=== PATIENT | male | born 1970 | race Hispanic/Latino ===

== ENCOUNTER 2019-10-15 13:08 | Emergency (ER) | payer SELFPAY ==
[2019-10-15] MEDS ORDERED: TETANUS,DIPH,PERTUSS(ACELL) VACCINE 0.5 ML SYRINGE IM ONE (13:19)
[2019-10-15] MEDS ORDERED: MORPHINE 4 MG/1 ML INJ ONE (13:43)
[2019-10-15] MEDS ORDERED: ONDANSETRON 4 MG/2 ML INJ ONE (13:43)
[2019-10-15] MEDS ORDERED: MORPHINE 4 MG/1 ML INJ IV ONE (13:48)
[2019-10-15] MEDS ORDERED: ONDANSETRON 4 MG/2 ML INJ IV ONE (13:51)
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
[2019-10-15] MEDS ORDERED: ceFAZolin/NS 1 GM/50 ML 1 GM/50 ML BAG IV ONE (14:19)
[2019-10-15 14:33] LABS: Hemoglobin 15.6 gm/dl (11.8-15.2); Red Blood Count 5.04 M/mm3 (3.65-5.03)
[2019-10-15 14:34] LABS: Basophils % (Auto) 0.4 % (0.0-1.8); Eosinophils # (Auto) 0.1 K/mm3 (0.0-0.4); Eosinophils % (Auto) 1.3 % (0.0-4.3); Hematocrit 46.3 % (35.5-45.6); Lymphocytes # (Auto) 1.8 K/mm3 (1.2-5.4); Lymphocytes % (Auto) 25.2 % (13.4-35.0); Mean Corpuscular HGB Conc 34 % (32-34); Mean Corpuscular Volume 92 fl (84-94); Monocytes # (Auto) 0.7 K/mm3 (0.0-0.8); Monocytes % (Auto) 9.3 % (0.0-7.3); Platelet Count 253 K/mm3 (140-440); Red Cell Distribution Width 13.9 % (13.2-15.2)
[2019-10-15 14:45] LABS: BUN/Creatinine Ratio 23; Blood Urea Nitrogen 25 mg/dL (9-20); Hemolysis Index 59
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
[2019-10-15 17:28] VITALS: BP 138/81
== END 2019-10-15 17:28 | disposition home or self-care (01) ==
LOC: ED 13:08
DX: S61.402A Unspecified open wound of left hand, initial encounter (principal); S71.102A Unspecified open wound, left thigh, initial encounter; F17.200 Nicotine dependence, unspecified, uncomplicated; Z98.890 Other specified postprocedural states; Z79.899 Other long term (current) drug therapy; X58.XXXA Exposure to other specified factors, initial encounter; Y93.9 Activity, unspecified; Y92.89 Other specified places as the place of occurrence of the external cause; Y99.8 Other external cause status
CPT/HCPCS: 36415; 73130; 73552; 80048; 85025; 90471; 90715; 96365; 96375; 99284; J0690; J2270; J2405